=== PATIENT | male | born 1970 | race Caucasian/White ===

== ENCOUNTER 2018-09-30 04:20 | Emergency (ER) | payer BC ==
[~2018-09-30 04:20] MED LIST: Famotidine 20 MG Tab ONE; diphenhydrAMINE 50 MG/ML SDV ONE
[2018-09-30] MEDS ORDERED: Sodium Chloride 0.9% 1,000 ML ONE (04:28)
[2018-09-30] MEDS ORDERED: Famotidine 20 MG Tab PO SCH (04:35)
[2018-09-30] MEDS ORDERED: diphenhydrAMINE 50 MG/ML SDV IM ONE (04:35)
[2018-09-30] MEDS: Sodium Chloride 0.9% 1,000 ML IV SCH ×2 (05:00→06:05)
[2018-09-30] MEDS ORDERED: EPINEPHrine 1 MG/ML SDV IM ONE ×2 (05:04→05:26)
[2018-09-30] MEDS ORDERED: methylPREDNISolone Sodium Succinate 125 MG/2 ML SDV IVPUSH SCH (05:15)
[2018-09-30] MEDS ORDERED: Sodium Chloride 0.9% 1,000 ML IV SCH (07:00)
--- NOTE | 2018-09-30 10:18 | EDM.PDOC ---
ED HPI GENERAL MEDICAL PROBLEM - General Chief Complaint: General Stated Complaint: tongue swelling Time Seen by Provider: 09/30/18 04:45 Source of Information: Reports: Patient, Family History Limitations: Reports: No Limitations - History of Present Illness INITIAL COMMENTS - FREE TEXT/NARRATIVE: patient arrives PO with complaint of tongue swelling. he reports waking up this am at approx 0400 with tongue swelling, at which point he used his epi-pen and came to the ER. he reports hx of spontaneous angioedema in the recent past without known trigger. he denies any potential triggers for this episode including ingestion or exposure. he denies any other concerns or complaints. Onset: Today, Sudden Location: Reports: Other (tongue) Quality: Reports: Other (swelling) Severity: Severe Treatments QUALITY AND RELIABILITY ENGINEER: Reports: Other (see below) (epi pen) Other Treatments QUALITY AND RELIABILITY ENGINEER: epi pen - Related Data Allergies Allergy/AdvReac Type Severity Reaction Status Date / Time lisinopril Allergy Swollen Verified 09/30/18 04:36 Tongue Past Medical History Cardiovascular History: Reports: High Cholesterol, Hypertension Musculoskeletal History: Reports: Gout Social & Family History - Family History Family Medical History: Noncontributory - Tobacco Use Smoking Status *Q: Never Smoker ED ROS GENERAL - Review of Systems Review Of Systems: See Below Constitutional: Denies: Fever, Chills HEENT: Reports: Other (swelling tongue. denies swelling of the lips or throat. denies other HEENT concerns.) Respiratory: Denies: Shortness of Breath, Wheezing, Cough, Hemoptysis Cardiovascular: Denies: Chest Pain, Syncope Endocrine: Denies: Fatigue GI/Abdominal: Denies: Abdominal Pain, Diarrhea, Nausea, Vomiting Musculoskeletal: Denies: Neck Pain Skin: Denies: Cyanosis, Jaundice, Rash, Lesions Neurological: Denies: Confusion, Dizziness, Syncope Psychiatric: Denies: Agitation, Anxiety ED EXAM, GENERAL - Physical Exam Exam: See Below Exam Limited By: No Limitations General Appearance: Alert, WD/WN, Mild Distress Throat/Mouth: Other (the tongue is markedly swollen. the lips are WNL. the patient is able to speak albeit with some difficult. he is able to swallow) Head: Atraumatic, Normocephalic. No: Facial Swelling, Facial Tenderness, Sinus Tenderness Neck: Normal Inspection, Supple, Non-Tender, Full Range of Motion. No: Lymphadenopathy (L), Lymphadenopathy (R) Respiratory/Chest: No Respiratory Distress, Lungs Clear, Normal Breath Sounds, No Accessory Muscle Use, Chest Non-Tender. No: Respiratory Distress, Stridor Cardiovascular: Normal Peripheral Pulses, Regular Rate, Rhythm, No Edema, No Gallop, No JVD, No Murmur, No Rub Peripheral Pulses: 2+: Radial (L), Radial (R) GI/Abdominal: Soft, Non-Tender Extremities: Normal Inspection, Normal Capillary Refill Neurological: Alert, Oriented Psychiatric: Normal Affect, Normal Mood Skin Exam: Warm, Dry, Intact, Normal Color, No Rash Course - Vital Signs Last Recorded V/S: Last Vital Signs Temp 35.6 C 09/30/18 07:46 Pulse 90 09/30/18 07:46 Resp 18 09/30/18 07:46 BP 133/72 09/30/18 07:46 Pulse Ox 96 09/30/18 07:46 - Orders/Labs/Meds Orders: Active Orders 24 hr Category Date Time Status Sodium Chloride 0.9% [Normal Saline] 1,000 ml Med 09/30/18 05:15 Active IV ASDIRECTED Sodium Chloride 0.9% [Normal Saline] 1,000 ml Med 09/30/18 07:00 Active IV ASDIRECTED methylPREDNISolone Sod Succ [Solu-MEDROL] Med 09/30/18 05:15 Active 125 mg IVPUSH Q24H Medication Orders Sodium Chloride (Normal Saline) 1,000 mls @ 999 mls/hr IV ASDIRECTED GENA Stop: 10/01/18 06:16 Last Admin: 09/30/18 06:05 Dose: 999 mls/hr Infusion: 09/30/18 06:01 Dose: 999 mls/hr Admin: 09/30/18 05:00 Dose: 999 mls/hr Sodium Chloride (Normal Saline) 1,000 mls @ 50 mls/hr IV ASDIRECTED GENA Last Admin: 09/30/18 07:49 Dose: 50 mls/hr Methylprednisolone Sodium Succinate (Solu-Medrol) 125 mg IVPUSH Q24H [facility] Last Admin: 09/30/18 05:00 Dose: 125 mg Meds: Medications Generic Name Dose Route Start Last Admin Trade Name Freq PRN Reason Stop Dose Admin Sodium Chloride 1,000 mls @ 999 mls/hr 09/30/18 05:15 09/30/18 06:05 Normal Saline IV 10/01/18 06:16 999 mls/hr ASDIRECTED GENA Administration Sodium Chloride 1,000 mls @ 50 mls/hr 09/30/18 07:00 09/30/18 07:49 Normal Saline IV 50 mls/hr ASDIRECTED GENA Administration Methylprednisolone Sodium Succinate 125 mg 09/30/18 05:15 09/30/18 05:00 Solu-Medrol IVPUSH 125 mg Q24H GENA Administration Discontinued Medications Generic Name Dose Route Start Last Admin Trade Name Marbella PRN Reason Stop Dose Admin Diphenhydramine HCl Confirm 09/30/18 04:19 09/30/18 05:06 Benadryl Administered 09/30/18 04:20 Not Given Dose 50 mg .ROUTE .STK-MED ONE Diphenhydramine HCl 50 mg 09/30/18 04:35 09/30/18 05:08 Benadryl IM 09/30/18 04:36 50 mg ONETIME ONE Administration Epinephrine HCl 0.5 mg 09/30/18 05:04 09/30/18 05:08 Adrenalin IM 09/30/18 05:05 0.5 mg ONETIME ONE Administration Epinephrine HCl 0.5 mg 09/30/18 05:26 09/30/18 05:25 Adrenalin IM 09/30/18 05:27 0.5 mg ONETIME ONE Administration Famotidine Confirm 09/30/18 04:18 09/30/18 05:06 Pepcid Administered 09/30/18 04:19 Not Given Dose 20 mg .ROUTE .STK-MED ONE Famotidine 20 mg 09/30/18 04:35 09/30/18 04:40 Pepcid PO 20 mg BID GENA Administration Sodium Chloride Confirm 09/30/18 04:28 09/30/18 05:06 Normal Saline Administered 09/30/18 04:29 Not Given Dose 1,000 mls @ as directed .ROUTE .STK-MED ONE Departure - Departure Time of Disposition: 09:40 Disposition: Home, Self-Care 01 Condition: Good Clinical Impression: Angioedema - Discharge Information *PRESCRIPTION DRUG MONITORING PROGRAM REVIEWED*: Not Applicable *COPY OF PRESCRIPTION DRUG MONITORING REPORT IN PATIENT MARLENA: Not Applicable Instructions: Angioedema Referrals: Titi Medina MD [Primary Care Provider] - Forms: ED Department Discharge Additional Instructions: REST HYDRATE FOLLOW UP WITH PCP SOON POSSIBLE USE EPI PEN AT FIRST SIGN OF SWELLING OR ALLERGIC REACTION GO TO CLOSEST ER IF CHANGE OR WORSE - Problem List Review Problem List Initiated/Reviewed/Updated: Yes - My Orders Last 24 Hours: My Active Orders 09/30/18 05:15 Sodium Chloride 0.9% [Normal Saline] 1,000 ml IV ASDIRECTED methylPREDNISolone Sod Succ [Solu-MEDROL] 125 mg IVPUSH Q24H 09/30/18 07:00 Sodium Chloride 0.9% [Normal Saline] 1,000 ml IV ASDIRECTED - Assessment/Plan Last 24 Hours: My Active Orders 09/30/18 05:15 Sodium Chloride 0.9% [Normal Saline] 1,000 ml IV ASDIRECTED methylPREDNISolone Sod Succ [Solu-MEDROL] 125 mg IVPUSH Q24H 09/30/18 07:00 Sodium Chloride 0.9% [Normal Saline] 1,000 ml IV ASDIRECTED Assessment:: Angioedema Upon being alerted by RN to the patient I directed her to immediately place a large bore IV, give 0.5 mg IM epinephrine, 50 mg IM benedryl, 20 mg PO pepcid, 1 L IV NS. The RN did this immediately. After his symptoms failed to resolve, I directed the patient to be given another 0.5 mg IM epinephrine and 125 mg IV solumedrol. He was monitored for 5 hours and his symptoms completely resolved. I refilled his Rx for EpiPen. I advised the patient to rest, hydrate, use EpiPen immediately at first sign of swelling / allergic reaction, go immediately to the ER for any new or worse symptoms, follow up with PCP as soon as possible. Patient reports understanding and agreement with plan. DC home in stable condition in care of family.
== END 2018-09-30 10:15 | disposition home or self-care (01) ==
LOC: CC.ED 04:20
DX: T78.3XXA Angioneurotic edema, initial encounter (principal); I10 Essential (primary) hypertension; Z88.8 Allergy status to other drugs, medicaments and biological substances
CPT/HCPCS: 96361; 96372; 96374; 96375; 99284; A9270; J0171; J1200; J2930; J7030

== ENCOUNTER → 2022-12-09 | Day surgery (SDC) | payer BC ==
[~2022-12-09] MED LIST changes: -Famotidine 20 MG Tab ONE; +Flumazenil 0.1 MG/ML 10 ML MDV ONE; +Ketamine 200 MG/20 ML MDV ONE; +Labetalol 100 MG/20 ML MDV ONE; +Lactated Ringers 1,000 ML IV SCH; +Midazolam 1 MG/ML 2 ML SDV ONE; +Propofol 200 MG/20 ML SDV ONE; -diphenhydrAMINE 50 MG/ML SDV ONE; +fentaNYL 50 MCG/ML SDV ONE
== END ==
LOC: CC.SDS 09:39
PROVIDERS: ATTEND Family Medicine
DX: Z12.11 Encounter for screening for malignant neoplasm of colon (principal); K63.5 Polyp of colon; K57.30 Diverticulosis of large intestine without perforation or abscess without bleeding; I10 Essential (primary) hypertension; E78.5 Hyperlipidemia, unspecified; M10.9 Gout, unspecified; K21.9 Gastro-esophageal reflux disease without esophagitis; N40.0 Benign prostatic hyperplasia without lower urinary tract symptoms; J30.9 Allergic rhinitis, unspecified; Z88.6 Allergy status to analgesic agent; Z79.899 Other long term (current) drug therapy; Z98.890 Other specified postprocedural states; Z72.0 Tobacco use
CPT/HCPCS: 00811; J2250; J2704; J3010; J3490; J7120